=== PATIENT | male | born 1955 | race Caucasian/White ===

== ENCOUNTER 2017-07-20 14:53 | Inpatient (IN) | payer OTHER ==
[~2017-07-20] VITALS: Ht 185.4 cm; Wt 123.0 kg
[2017-07-20 15:56] LABS: TROPONIN I < 0.015 ng/mL (0.000-0.045)
[2017-07-20] MEDS ORDERED: ROSU20TA PO (16:23)
[2017-07-20] MEDS ORDERED: QUET400T4 PO (16:23)
[2017-07-20] MEDS ORDERED: QUET25TA5 PO (16:23)
[2017-07-20] MEDS ORDERED: FERR-46 PO (16:23)
[2017-07-20] MEDS ORDERED: HYDR10TA11 PO (16:23)
[2017-07-20] MEDS ORDERED: AMIO200T42 PO (16:23)
[2017-07-20] MEDS ORDERED: TIOT18CA INH (16:23)
[2017-07-20] MEDS ORDERED: MAGN420T PO (16:23)
[2017-07-20] MEDS ORDERED: LEVE100020 PO (16:23)
[2017-07-20] MEDS ORDERED: TRAZ50TA18 PO (16:23)
[2017-07-20] MEDS ORDERED: VALP250C PO (16:23)
[2017-07-20] MEDS ORDERED: OMEP-110 PO (16:23)
[2017-07-20] MEDS ORDERED: HYDR5TAB2 PO (16:23)
[2017-07-20] MEDS ORDERED: CETI10TA18 PO (16:23)
[2017-07-20] MEDS ORDERED: SODIUM CHLORIDE FLUSH 10ML SYR IVF PRN (16:30)
[2017-07-20] MEDS ORDERED: ACETAMINOPHEN 325 MG TABLET PO PRN (17:30)
[2017-07-20] MEDS ORDERED: NITROGLYCERIN 0.4 MG BOTTLE (25 TABS) SL PRN (17:30)
[2017-07-20] MEDS ORDERED: NITROGLYCERIN 0.4 MG/SPRAY SL PRN (17:30)
[2017-07-20] MEDS ORDERED: ONDANSETRON 2MG/ML, 2ML IVPush PRN (17:30)
[2017-07-20] MEDS ORDERED: POLYETHYLENE GLYCOL 17 GM PACKET PO PRN (17:30)
[2017-07-20] MEDS ORDERED: CETIRIZINE 10 MG TABLET PO PRN (17:30)
[2017-07-20] MEDS ORDERED: HYDROcodone/APAP 5/325 TABLET PO PRN (17:30)
[2017-07-20] MEDS ORDERED: HYDROmorphone 2 MG/ML, 1ML ONE ×2 (17:36→20:15)
[2017-07-20] MEDS ORDERED: ONDANSETRON 2MG/ML, 2ML ONE (17:36)
[2017-07-20] MEDS: HYDROmorphone 2 MG/ML, 1ML IVPush PRN ×2 (17:47→22:38)
[2017-07-20 18:28] LABS: TROPONIN I < 0.015 ng/mL (0.000-0.045)
[2017-07-20] MEDS ORDERED: HYDROcodone/APAP 5/325 TABLET ONE (20:16)
[2017-07-20 21:00] VITALS: BP 109/72
[2017-07-20] MEDS ORDERED: HYDROCORTISONE 5 MG TABLET PO SCH (21:00)
[2017-07-20] MEDS: IPRATROPIUM 0.5 MG/2.5 ML INHA NPPB SCH (21:00)
[2017-07-20] MEDS: AMIODARONE 200 MG TABLET PO SCH (21:23)
[2017-07-20] MEDS: TRAZODONE 50MG TABLET PO SCH (21:24)
[2017-07-20] MEDS: VALPROIC ACID 250 MG CAPSULE PO SCH (21:24)
[2017-07-20] MEDS: ATORVASTATIN 40 MG TABLET PO SCH (21:25)
[2017-07-20] MEDS: QUETIAPINE 25MG TABLET PO SCH (21:25)
[2017-07-20] MEDS: LEVETIRACETAM 500 MG TABLET PO SCH (21:25)
[2017-07-20] MEDS: QUETIAPINE 200 MG TABLET PO SCH (21:25)
[2017-07-20] MEDS: OMEPRAZOLE 20 MG CAPSULE.DR PO SCH (21:25)
[2017-07-20] MEDS ORDERED: HYDROmorphone 1 MG/ML, 1ML ONE (22:34)
[2017-07-21] MEDS: IPRATROPIUM 0.5 MG/2.5 ML INHA NPPB SCH ×4 (03:00→17:59)
[2017-07-21 03:18] VITALS: BP 132/74
[2017-07-21] MEDS ORDERED: HYDROmorphone 1 MG/ML, 1ML ONE (03:43)
[2017-07-21] MEDS: HYDROmorphone 2 MG/ML, 1ML IVPush PRN ×2 (03:46→19:42)
[2017-07-21 06:16] LABS: BASOPHILS # (AUTO) 0.02 x10^3/uL (0-0.1); BASOPHILS % (AUTO) 0 % (0-1); EOSINOPHILS # (AUTO) 0.12 x10^3/uL (0-0.4); EOSINOPHILS % (AUTO) 2 % (1-7); LYMPHOCYTES # (AUTO) 1.08 x10^3/uL (1-3.4); LYMPHOCYTES % (AUTO) 19 % (22-44); MD NO; MEAN CORPUSCULAR HEMOGLOBIN 30.9 pg (27.5-34.5); MEAN CORPUSCULAR HGB CONC 33.1 g/dL (33.2-36.2); MEAN CORPUSCULAR VOLUME 93.2 fL (81-97); MONOCYTES # (AUTO) 0.46 x10^3/uL (0.2-0.8); MONOCYTES % (AUTO) 8 % (2-9); NEUTROPHILS # (AUTO) 4.02 x10^3/uL (1.8-6.8); NEUTROPHILS % (AUTO) 70 % (42-75); PLATELET COUNT 117 x10^3/uL (130-400); RED BLOOD COUNT 4.09 x10^6/uL (4.38-5.82); RED CELL DISTRIBUTION WIDTH 14.9 % (9.4-14.8)
[2017-07-21 06:30] LABS: TROPONIN I < 0.015 ng/mL (0.000-0.045)
[2017-07-21 06:32] LABS: CHLORIDE 107 mmol/L (98-107)
[2017-07-21 06:42] LABS: ALANINE AMINOTRANSFERASE 77 U/L (12-78); ALKALINE PHOSPHATASE 213 U/L (45-117); ANION GAP 7 mmol/L (5-15); BILIRUBIN,TOTAL 0.7 mg/dL (0.2-1.0); CHOL/HDL RATIO 3.6; CHOLESTEROL, TOTAL 122 mg/dL (140-239); CREATININE 1.11 mg/dL (0.7-1.3); HDL CHOL % 28 % (26-37); HDL CHOLESTEROL (DIRECT) 34 mg/dL (40-60); LDL CHOLESTEROL,CALCULATED 63 mg/dL (54-169); LDL/HDL RATIO 1.9 (0.5-3.0); TRIGLYCERIDES 125 mg/dL (50-200); VLDL CHOLESTEROL 25 mg/dL (0-25)
[2017-07-21 08:15] VITALS: BP 115/82
[2017-07-21] MEDS: FERROUS SULFATE 325 MG TABLET PO SCH (09:00)
[2017-07-21] MEDS: MAGNESIUM OXIDE 400 MG TABLET PO SCH (09:00)
[2017-07-21] MEDS ORDERED: HYDROCORTISONE 10 MG TABLET PO SCH (09:00)
[2017-07-21] MEDS: AMIODARONE 200 MG TABLET PO SCH ×2 (09:00→20:16)
[2017-07-21] MEDS ORDERED: REGADENOSON 0.4 MG/5 ML SYRINGE ONE (09:15)
[2017-07-21] MEDS ORDERED: OMNIPAQUE 350 MG/ML, 100ML BOTTLE ONE (12:34)
[2017-07-21 13:13] VITALS: BP 120/82
[2017-07-21 14:55] VITALS: BP 106/74
[2017-07-21] MEDS ORDERED: PHARMACOKINETIC CONSULTATION MC ONE (16:00)
[2017-07-21] MEDS ORDERED: VANCOMYCIN PER PHARMACY MC PRN (16:00)
[2017-07-21] MEDS ORDERED: PHARMACOKINETIC MONITORING MC PRN (16:00)
[2017-07-21] MEDS: PIPERACILLIN/TAZO/PMX 3.375GM 50 ML IV SCH ×2 (16:29→21:38)
[2017-07-21] MEDS: VANCOMYCIN 1,800 MG in SODIUM CHLORIDE 0.9% 250 ML IV SCH (17:22)
[2017-07-21 18:45] VITALS: BP 116/66
[2017-07-21] MEDS: HYDROCORTISONE 100 MG INJ. IVPush SCH (20:14)
[2017-07-21] MEDS: ATORVASTATIN 40 MG TABLET PO SCH (20:16)
[2017-07-21] MEDS: LEVETIRACETAM 500 MG TABLET PO SCH (20:16)
[2017-07-21] MEDS: VALPROIC ACID 250 MG CAPSULE PO SCH (20:16)
[2017-07-21] MEDS: TRAZODONE 50MG TABLET PO SCH (20:16)
[2017-07-21] MEDS: OMEPRAZOLE 20 MG CAPSULE.DR PO SCH (20:17)
[2017-07-21] MEDS: QUETIAPINE 25MG TABLET PO SCH (20:17)
[2017-07-21] MEDS: QUETIAPINE 200 MG TABLET PO SCH (20:17)
[2017-07-22] MEDS: IPRATROPIUM 0.5 MG/2.5 ML INHA NPPB SCH ×5 (01:15→23:28)
[2017-07-22 02:00] VITALS: BP 106/66
[2017-07-22] MEDS: PIPERACILLIN/TAZO/PMX 3.375GM 50 ML IV SCH ×4 (04:00→22:11)
[2017-07-22] MEDS: HYDROCORTISONE 100 MG INJ. IVPush SCH ×3 (04:04→19:22)
[2017-07-22 05:47] LABS: BASOPHILS # (AUTO) 0.01 x10^3/uL (0-0.1); BASOPHILS % (AUTO) 0 % (0-1); EOSINOPHILS % (AUTO) 0 % (1-7); LYMPHOCYTES # (AUTO) 0.75 x10^3/uL (1-3.4); LYMPHOCYTES % (AUTO) 11 % (22-44); MD NO; MEAN CORPUSCULAR HEMOGLOBIN 30.8 pg (27.5-34.5); MEAN CORPUSCULAR HGB CONC 33.5 g/dL (33.2-36.2); MEAN CORPUSCULAR VOLUME 91.9 fL (81-97); MONOCYTES # (AUTO) 0.35 x10^3/uL (0.2-0.8); MONOCYTES % (AUTO) 5 % (2-9); NEUTROPHILS # (AUTO) 5.67 x10^3/uL (1.8-6.8); NEUTROPHILS % (AUTO) 84 % (42-75); PLATELET COUNT 103 x10^3/uL (130-400); RED BLOOD COUNT 3.84 x10^6/uL (4.38-5.82); RED CELL DISTRIBUTION WIDTH 15.2 % (9.4-14.8)
[2017-07-22 05:55] LABS: CHLORIDE 106 mmol/L (98-107)
[2017-07-22 06:04] LABS: ALANINE AMINOTRANSFERASE 42 U/L (12-78); ALBUMIN 2.6 g/dL (3.4-5.0); ALKALINE PHOSPHATASE 161 U/L (45-117); ANION GAP 8 mmol/L (5-15); BILIRUBIN,TOTAL 0.8 mg/dL (0.2-1.0); CALCIUM 9.2 mg/dL (8.5-10.1); CREATININE 1.14 mg/dL (0.7-1.3); TOTAL PROTEIN 6.7 g/dL (6.4-8.2)
[2017-07-22 07:38] VITALS: BP 118/77
[2017-07-22] MEDS: LEVETIRACETAM 1,000 MG in SODIUM CHLORIDE 0.9% 100 ML IV SCH ×2 (08:10→19:22)
[2017-07-22] MEDS: AMIODARONE 200 MG TABLET PO SCH ×2 (08:57→20:40)
[2017-07-22] MEDS: FERROUS SULFATE 325 MG TABLET PO SCH (08:57)
[2017-07-22] MEDS: MAGNESIUM OXIDE 400 MG TABLET PO SCH (08:58)
[2017-07-22] MEDS ORDERED: OMNIPAQUE 350 MG/ML, 100ML BOTTLE ONE (10:49)
[2017-07-22] MEDS: SODIUM CHLORIDE 0.9% 1,000 ML IV SCH (11:08)
[2017-07-22] MEDS: VANCOMYCIN 1,800 MG in SODIUM CHLORIDE 0.9% 250 ML IV SCH (11:38)
[2017-07-22 14:52] VITALS: BP 130/80
[2017-07-22] MEDS: ATORVASTATIN 40 MG TABLET PO SCH (19:30)
[2017-07-22 19:56] VITALS: BP 152/92
[2017-07-22] MEDS: TRAZODONE 50MG TABLET PO SCH (20:39)
[2017-07-22] MEDS: VALPROIC ACID 250 MG CAPSULE PO SCH (20:40)
[2017-07-22] MEDS: OMEPRAZOLE 20 MG CAPSULE.DR PO SCH (20:57)
[2017-07-22] MEDS: LEVETIRACETAM 500 MG TABLET PO SCH (20:57)
[2017-07-22] MEDS ORDERED: HOLD MEDICATION MC PRN (21:00)
[2017-07-22] MEDS: HYDROcodone/APAP 5/325 TABLET PO PRN (21:06)
[2017-07-23 01:56] VITALS: BP 139/84
[2017-07-23] MEDS: SODIUM CHLORIDE 0.9% 1,000 ML IV SCH ×3 (03:13→20:50)
[2017-07-23] MEDS: PIPERACILLIN/TAZO/PMX 3.375GM 50 ML IV SCH ×4 (04:13→22:22)
[2017-07-23] MEDS: HYDROCORTISONE 100 MG INJ. IVPush SCH (04:16)
[2017-07-23 05:02] LABS: BASOPHILS # (AUTO) 0.01 x10^3/uL (0-0.1); BASOPHILS % (AUTO) 0 % (0-1); EOSINOPHILS % (AUTO) 0 % (1-7); LYMPHOCYTES # (AUTO) 1.15 x10^3/uL (1-3.4); LYMPHOCYTES % (AUTO) 18 % (22-44); MD NO; MEAN CORPUSCULAR HEMOGLOBIN 30.8 pg (27.5-34.5); MEAN CORPUSCULAR HGB CONC 33.2 g/dL (33.2-36.2); MEAN CORPUSCULAR VOLUME 92.6 fL (81-97); MEAN PLATELET VOLUME 7.3 fL (7.4-10.4); MONOCYTES # (AUTO) 0.26 x10^3/uL (0.2-0.8); MONOCYTES % (AUTO) 4 % (2-9); NEUTROPHILS # (AUTO) 4.92 x10^3/uL (1.8-6.8); NEUTROPHILS % (AUTO) 78 % (42-75); PLATELET COUNT 108 x10^3/uL (130-400); RED BLOOD COUNT 3.83 x10^6/uL (4.38-5.82); RED CELL DISTRIBUTION WIDTH 14.9 % (9.4-14.8)
[2017-07-23 05:13] LABS: ANION GAP 5 mmol/L (5-15); CALCIUM 9.4 mg/dL (8.5-10.1); CHLORIDE 109 mmol/L (98-107); CREATININE 0.97 mg/dL (0.7-1.3)
[2017-07-23] MEDS: VANCOMYCIN 1,800 MG in SODIUM CHLORIDE 0.9% 250 ML IV SCH ×2 (05:22→23:27)
[2017-07-23] MEDS: IPRATROPIUM 0.5 MG/2.5 ML INHA NPPB SCH (07:30)
[2017-07-23 07:53] VITALS: BP 187/94
[2017-07-23] MEDS: LEVETIRACETAM 1,000 MG in SODIUM CHLORIDE 0.9% 100 ML IV SCH (08:15)
[2017-07-23] MEDS: MAGNESIUM OXIDE 400 MG TABLET PO SCH (08:15)
[2017-07-23] MEDS: FERROUS SULFATE 325 MG TABLET PO SCH (08:15)
[2017-07-23] MEDS: AMIODARONE 200 MG TABLET PO SCH ×2 (08:16→20:53)
[2017-07-23 12:03] VITALS: BP 184/82
[2017-07-23 18:50] VITALS: BP 127/75
[2017-07-23] MEDS ORDERED: IPRATROPIUM 0.5 MG/2.5 ML INHA ONE (19:25)
[2017-07-23] MEDS: VALPROIC ACID 250 MG CAPSULE PO SCH (20:52)
[2017-07-23] MEDS: HYDROCORTISONE 5 MG TABLET PO SCH (20:52)
[2017-07-23] MEDS: TRAZODONE 50MG TABLET PO SCH (20:53)
[2017-07-23] MEDS: OMEPRAZOLE 20 MG CAPSULE.DR PO SCH (20:53)
[2017-07-23] MEDS ORDERED: HYDROCORTISONE 10 MG TABLET PO SCH (21:00)
[2017-07-24 02:34] VITALS: BP 134/84
[2017-07-24] MEDS ORDERED: IPRATROPIUM 0.5 MG/2.5 ML INHA NPPB PRN (03:00)
[2017-07-24] MEDS: PIPERACILLIN/TAZO/PMX 3.375GM 50 ML IV SCH ×4 (04:21→21:54)
[2017-07-24] MEDS ORDERED: HYDROCORTISONE 5 MG TABLET PO SCH (07:30)
[2017-07-24 07:42] VITALS: BP 130/87
[2017-07-24] MEDS: FERROUS SULFATE 325 MG TABLET PO SCH (09:00)
[2017-07-24] MEDS: HYDROCORTISONE 10 MG TABLET PO SCH ×2 (09:31→09:32)
[2017-07-24] MEDS: AMIODARONE 200 MG TABLET PO SCH ×2 (09:32→20:13)
[2017-07-24] MEDS: MAGNESIUM OXIDE 400 MG TABLET PO SCH (09:32)
[2017-07-24] MEDS ORDERED: REGADENOSON 0.4 MG/5 ML SYRINGE ONE (10:05)
[2017-07-24] MEDS ORDERED: AMINOPHYLLINE 25 MG/ML, 10ML ONE (10:29)
[2017-07-24 13:58] VITALS: BP 146/93
[2017-07-24] MEDS: IPRATROPIUM 0.5 MG/2.5 ML INHA NPPB SCH ×2 (15:40→20:20)
[2017-07-24] MEDS: SODIUM CHLORIDE 0.9% 1,000 ML IV SCH (16:20)
[2017-07-24 20:10] VITALS: BP 126/79
[2017-07-24] MEDS: HYDROcodone/APAP 5/325 TABLET PO PRN (20:13)
[2017-07-24] MEDS: VALPROIC ACID 250 MG CAPSULE PO SCH (20:13)
[2017-07-24] MEDS: HYDROCORTISONE 5 MG TABLET PO SCH (20:14)
[2017-07-24] MEDS: TRAZODONE 50MG TABLET PO SCH (20:15)
[2017-07-24] MEDS: OMEPRAZOLE 20 MG CAPSULE.DR PO SCH (20:15)
[2017-07-24] MEDS ORDERED: QUETIAPINE 25MG TABLET PO SCH (21:00)
[2017-07-25 02:00] VITALS: BP 131/82
[2017-07-25] MEDS: IPRATROPIUM 0.5 MG/2.5 ML INHA NPPB SCH ×3 (02:00→13:40)
[2017-07-25] MEDS: PIPERACILLIN/TAZO/PMX 3.375GM 50 ML IV SCH ×3 (03:46→10:35)
[2017-07-25] MEDS ORDERED: VANCOMYCIN 1,800 MG in SODIUM CHLORIDE 0.9% 250 ML IV SCH (05:00)
[2017-07-25 07:42] VITALS: BP 149/91
[2017-07-25] MEDS: SODIUM CHLORIDE 0.9% 1,000 ML IV SCH (10:25)
[2017-07-25] MEDS: AMIODARONE 200 MG TABLET PO SCH (10:33)
[2017-07-25] MEDS: MAGNESIUM OXIDE 400 MG TABLET PO SCH (10:33)
[2017-07-25] MEDS: FERROUS SULFATE 325 MG TABLET PO SCH (10:34)
[2017-07-25] MEDS: HYDROCORTISONE 10 MG TABLET PO SCH (10:34)
[2017-07-25] MEDS ORDERED: CALCIUM CARBONATE 500 MG TAB.CHEW PO PRN (11:00)
[2017-07-25] MEDS ORDERED: ALUMINUM/MAG/SIMETHICONE 30 ML UDC PO PRN (11:00)
[2017-07-25] MEDS ORDERED: QUET25TA5 PO (12:13)
[2017-07-25] MEDS ORDERED: CLIN300C8 PO (12:15)
[2017-07-25] MEDS: HYDROcodone/APAP 5/325 TABLET PO PRN (14:08)
== END 2017-07-25 15:13 | DRG 177 ==
LOC: ED 16:08 → EDIP 16:09 → ED 16:29 → 5SO 20:25 → 4WST 07-21 18:21
PROVIDERS: ADMIT Internal Medicine; ATTEND Family Medicine
DX: J69.0 Pneumonitis due to inhalation of food and vomit (principal); J96.01 Acute respiratory failure with hypoxia; G93.40 Encephalopathy, unspecified; D69.59 Other secondary thrombocytopenia; E27.40 Unspecified adrenocortical insufficiency; I20.0 Unstable angina; I48.0 Paroxysmal atrial fibrillation; G40.909 Epilepsy, unspecified, not intractable, without status epilepticus; K92.2 Gastrointestinal hemorrhage, unspecified; G30.9 Alzheimer's disease, unspecified; F02.80 Dementia in other diseases classified elsewhere, unspecified severity, without behavioral disturbance, psychotic disturbance, mood disturbance, and anxiety; F17.210 Nicotine dependence, cigarettes, uncomplicated; G43.909 Migraine, unspecified, not intractable, without status migrainosus; I71.4 Abdominal aortic aneurysm, without rupture; Z80.8 Family history of malignant neoplasm of other organs or systems; Z82.3 Family history of stroke; Z82.49 Family history of ischemic heart disease and other diseases of the circulatory system; Z86.73 Personal history of transient ischemic attack (TIA), and cerebral infarction without residual deficits; Z86.79 Personal history of other diseases of the circulatory system; Z88.9 Allergy status to unspecified drugs, medicaments and biological substances; Z90.49 Acquired absence of other specified parts of digestive tract; Q98.4 Klinefelter syndrome, unspecified
CPT/HCPCS: 36415; 36600; 70496; 71045; 71275; 78452; 80048; 80053; 80061; 80202; 82140; 82803; 83735; 84100; 84443; 84484; 85025; 87040; 93005; 93017; 93306; 94640; 96374; J1170; J1953; J2405; J2543; J2785; J3370; J7644; Q9967; A9502; C9898; J0280; J1720; J7030; J7050

== ENCOUNTER → 2017-07-20 | Outpatient (CLI) | payer OTHER ==
[~2017-07-20] VITALS: Ht 185.4 cm; Wt 113.6 kg
[~2017-07-20] MED LIST: AMIO200T42 PO; CETI10TA18 PO; CLIN300C8 PO; FERR-46 PO; HYDR10TA11 PO; HYDR5TAB2 PO; LEVE100020 PO; LIDOCAINE 1%, 20ML ONE; MAGN420T PO; OMEP-110 PO; QUET25TA5 PO; QUET400T4 PO; ROSU20TA PO; TIOT18CA INH; TRAZ50TA18 PO; VALP250C PO
[2017-07-20 13:34] VITALS: BP 167/97
[2017-07-20 14:25] LABS: BASOPHILS # (AUTO) 0.01 x10^3/uL (0-0.1); BASOPHILS % (AUTO) 0 % (0-1); EOSINOPHILS # (AUTO) 0.17 x10^3/uL (0-0.4); EOSINOPHILS % (AUTO) 3 % (1-7); LYMPHOCYTES # (AUTO) 1.47 x10^3/uL (1-3.4); LYMPHOCYTES % (AUTO) 23 % (22-44); MD NO; MEAN CORPUSCULAR HEMOGLOBIN 30.8 pg (27.5-34.5); MEAN CORPUSCULAR HGB CONC 33.4 g/dL (33.2-36.2); MEAN CORPUSCULAR VOLUME 92.1 fL (81-97); MEAN PLATELET VOLUME 6.6 fL (7.4-10.4); MONOCYTES # (AUTO) 0.42 x10^3/uL (0.2-0.8); MONOCYTES % (AUTO) 7 % (2-9); NEUTROPHILS # (AUTO) 4.39 x10^3/uL (1.8-6.8); NEUTROPHILS % (AUTO) 68 % (42-75); PLATELET COUNT 122 x10^3/uL (130-400); RED BLOOD COUNT 4.52 x10^6/uL (4.38-5.82); RED CELL DISTRIBUTION WIDTH 15.3 % (9.4-14.8)
[2017-07-20 15:08] LABS: ALANINE AMINOTRANSFERASE 12 U/L (12-78); ALBUMIN 3.3 g/dL (3.4-5.0); ANION GAP 8 mmol/L (5-15); CALCIUM 9.5 mg/dL (8.5-10.1); CHLORIDE 105 mmol/L (98-107); CREATININE 0.89 mg/dL (0.7-1.3)
[2017-07-20 15:10] LABS: ALKALINE PHOSPHATASE 81 U/L (45-117); BILIRUBIN,TOTAL 0.5 mg/dL (0.2-1.0); TOTAL PROTEIN 7.7 g/dL (6.4-8.2)
== END | disposition home or self-care (01) ==
LOC: OUT 12:59 → EDSTATUS 14:00
DX: Z01.810 Encounter for preprocedural cardiovascular examination (principal); Z01.812 Encounter for preprocedural laboratory examination; I72.8 Aneurysm of other specified arteries; I44.4 Left anterior fascicular block
CPT/HCPCS: 36415; 80053; 85025; 93005; J3490

== ENCOUNTER 2020-02-12 10:17 | Emergency (ER) | payer OTHER ==
[~2020-02-12] VITALS: Ht 180.3 cm; Wt 95.0 kg
[~2020-02-12 10:17] MED LIST changes: +HYDR-3590 PO; -HYDR10TA11 PO; +HYDR5TAB13 PO; -HYDR5TAB2 PO; -LIDOCAINE 1%, 20ML ONE; -ROSU20TA PO; +ROSU20TA2 PO; -TRAZ50TA18 PO; +TRAZ50TA66 PO
--- NOTE | 2020-02-12 10:47 | NUR ---
TASK RN. REPORT GIVEN TO KRISTINE RN. RT AT BEDSIDE TO ASSIST WITH TRACH CARE.
[2020-02-12] MEDS ORDERED: SODIUM CHLORIDE FLUSH 10ML SYR IVF ONE (11:30)
[2020-02-12] MEDS ORDERED: AZITHROMYCIN 500 MG in SODIUM CHLORIDE 0.9% 250 ML IV ONE (12:30)
[2020-02-12] MEDS ORDERED: CEFTRIAXONE PMX 1GM/50ML 50 ML IV ONE (12:30)
--- NOTE | 2020-02-12 12:46 | NUR ---
LAB AT BEDSIDE FOR BLOOD CULTURES.
[2020-02-12 13:12] LABS: BASOPHILS % (AUTO) 0 % (0-1); EOSINOPHILS # (AUTO) 0.14 x10^3/uL (0-0.4); EOSINOPHILS % (AUTO) 2 % (1-7); LYMPHOCYTES # (AUTO) 0.76 x10^3/uL (1-3.4); LYMPHOCYTES % (AUTO) 10 % (22-44); MD NO; MEAN CORPUSCULAR HEMOGLOBIN 28.6 pg (27.5-34.5); MEAN CORPUSCULAR HGB CONC 32.4 g/dL (33.2-36.2); MEAN CORPUSCULAR VOLUME 88.4 fL (81-97); MEAN PLATELET VOLUME 7.4 fL (7.4-10.4); MONOCYTES # (AUTO) 0.81 x10^3/uL (0.2-0.8); MONOCYTES % (AUTO) 11 % (2-9); NEUTROPHILS # (AUTO) 5.86 x10^3/uL (1.8-6.8); NEUTROPHILS % (AUTO) 77 % (42-75); PLATELET COUNT 214 x10^3/uL (130-400); RED CELL DISTRIBUTION WIDTH 16.3 % (9.4-14.8)
--- NOTE | 2020-02-12 13:16 | NUR ---
PER OKAY NOT TO PLACE IV AT THIS TIME.
[2020-02-12 13:20] LABS: ALBUMIN 2.6 g/dL (3.4-5.0); ANION GAP 7 mmol/L (5-15); CALCIUM 9.3 mg/dL (8.5-10.1); CHLORIDE 101 mmol/L (98-107)
[2020-02-12 13:37] LABS: ALANINE AMINOTRANSFERASE 20 U/L (12-78); ALKALINE PHOSPHATASE 126 U/L (45-117); BILIRUBIN,TOTAL 0.7 mg/dL (0.2-1.0); CREATININE 1.47 mg/dL (0.7-1.3); TOTAL PROTEIN 7.5 g/dL (6.4-8.2)
--- NOTE | 2020-02-12 14:16 | NUR ---
SPOKE TO SHEY CHAPA FOR PT, OBTAINED VERBAL CONSENT FOR TRANSFER BACK TO [facility] [place].
--- NOTE | 2020-02-12 14:21 | NUR ---
REPORT CALLED TO RICK RN TO [facility]. PER RICK SHE WILL UPDATE CHARGE NURSE DEEPALI WELL AT THEIR FACILITY.
--- NOTE | 2020-02-12 14:55 | NUR ---
REPORT RECEIVED FROM BRITTANI CARMONA. [facility] ETA 1500
[2020-02-12 15:29] VITALS: BP 132/88
--- NOTE | 2020-02-12 15:29 | NUR ---
[facility] HERE FOR TRANSPORT BACK TO [facility] [place].
== END 2020-02-12 15:54 | disposition home or self-care (01) ==
LOC: ED 11:46
DX: R62.7 Adult failure to thrive (principal); Z68.29 Body mass index [BMI] 29.0-29.9, adult; I48.91 Unspecified atrial fibrillation; F20.9 Schizophrenia, unspecified; G40.909 Epilepsy, unspecified, not intractable, without status epilepticus; I25.10 Atherosclerotic heart disease of native coronary artery without angina pectoris
CPT/HCPCS: 36415; 71045; 80053; 80162; 83605; 85025; 87040; 93005; 99285